=== PATIENT | female | born 1935 | race Two or more races ===

== ENCOUNTER 2019-05-15 07:24 | Day surgery (SDC) | payer OTHER | END 2019-05-15 13:40 | disposition home or self-care (01) | LOC: AMB-ENDOS 07:24 → ADM 09:45 → AMB-ENDOS 09:45 | DX: D12.0 Benign neoplasm of cecum (principal); D12.2 Benign neoplasm of ascending colon; K57.30 Diverticulosis of large intestine without perforation or abscess without bleeding ==